=== PATIENT | male | born 1990 | race Caucasian/White ===

== ENCOUNTER 2022-03-21 17:23 | Emergency (ER) | payer OTHER | END 2022-03-21 21:34 | disposition home or self-care (01) | LOC: ER1 17:23 | DX: U07.1 COVID-19 (principal); M79.672 Pain in left foot; F15.10 Other stimulant abuse, uncomplicated; F17.200 Nicotine dependence, unspecified, uncomplicated | CPT/HCPCS: 0241U; 99283 ==

== ENCOUNTER 2022-03-31 08:41 | Emergency (ER) | payer OTHER | END 2022-03-31 12:15 | disposition home or self-care (01) | LOC: ER1 08:41 | DX: S90.851A Superficial foreign body, right foot, initial encounter (principal); M79.672 Pain in left foot; W45.8XXA Other foreign body or object entering through skin, initial encounter | CPT/HCPCS: 10120; 73620; 99283 ==

== ENCOUNTER 2022-05-04 10:40 | Observation (INO) | payer OTHER ==
[~2022-05-04] VITALS: Ht 185.4 cm; Wt 83.9 kg
[2022-05-04 11:22] LABS: HEMOGLOBIN 14.4 gm/dl (14.0-17.5); RED BLOOD COUNT 4.43 M/UL (4.20-5.50); WHITE BLOOD COUNT 6.6 K/UL (4.5-11.0)
[2022-05-04 11:46] LABS: BUN/CREATININE RATIO 12 (0-10)
--- NOTE | 2022-05-04 19:31 | NUR ---
PT IS CURRENLY IN AND OUT OF ORIENTATION SO IT WAS DIFFUCULT TO GET A DETAILED PART 1. DIRECTOR SEARCH MARKETING STRATEGIES JOSH INSTRUCTED ME TO OBTAIN WHAT INFORMATION I COULD.
[2022-05-05 03:30] LABS: HEMOGLOBIN 13.9 gm/dl (14.0-17.5); RED BLOOD COUNT 4.35 M/UL (4.20-5.50); WHITE BLOOD COUNT 6.9 K/UL (4.5-11.0)
[2022-05-05 03:53] LABS: BUN/CREATININE RATIO 18 (0-10)
[2022-05-05] MEDS ORDERED: CHLORASEPTIC20 ML MM (13:57)
== END 2022-05-05 16:17 | disposition home or self-care (01) ==
LOC: ER1 10:40 → CDU 15:05 → M/S 17:27
PROVIDERS: Physician Assistant Medical; Student in an Organized Health Care Education/Training Program; ADMIT Internal Medicine
DX: F15.10 Other stimulant abuse, uncomplicated (principal)
CPT/HCPCS: 36415; 70360; 71045; 71250; 74018; 80048; 80053; 80307; 81001; 82550; 82553; 83605; 83735; 84484; 85025; 85027; 85610; 85730; 99285; G0378

== ENCOUNTER 2022-05-16 08:05 | Emergency (ER) | payer OTHER ==
[~2022-05-16 08:05] MED LIST: CHLORASEPTIC20 ML MM
[2022-05-16 11:37] LABS: HEMOGLOBIN 13.3 gm/dl (14.0-17.5); RED BLOOD COUNT 4.05 M/UL (4.20-5.50); WHITE BLOOD COUNT 9.7 K/UL (4.5-11.0)
[2022-05-16 11:59] LABS: BUN/CREATININE RATIO 27 (0-10)
[2022-05-16] MEDS ORDERED: PROTONIX40 MG PO (13:03)
[2022-05-16] MEDS ORDERED: ONDANSETRON ODT4 MG SL (13:03)
== END 2022-05-16 12:09 | disposition home or self-care (01) ==
LOC: ER1 08:05
PROVIDERS: Physician Assistant
DX: R07.89 Other chest pain (principal); R11.2 Nausea with vomiting, unspecified; K21.9 Gastro-esophageal reflux disease without esophagitis; F17.290 Nicotine dependence, other tobacco product, uncomplicated
CPT/HCPCS: 71045; 80053; 81001; 82550; 82553; 83690; 84484; 85025; 93005; 96374; 96375; 99285; C9113; J2405; Q0177

== ENCOUNTER 2022-05-18 11:35 | Emergency (ER) | payer OTHER ==
[~2022-05-18] VITALS: Ht 185.4 cm; Wt 77.1 kg
[~2022-05-18 11:35] MED LIST changes: +ONDANSETRON ODT4 MG SL; +PROTONIX40 MG PO
[2022-05-18 13:44] LABS: HEMOGLOBIN 12.3 gm/dl (14.0-17.5); RED BLOOD COUNT 3.9 M/UL (4.20-5.50); WHITE BLOOD COUNT 10.1 K/UL (4.5-11.0)
[2022-05-18 14:09] LABS: BUN/CREATININE RATIO 25 (0-10)
[2022-05-18] MEDS ORDERED: PEPCID40 MG PO (18:58)
[2022-05-18] MEDS ORDERED: PROTONIX40 MG PO (18:58)
== END 2022-05-18 19:19 | disposition home or self-care (01) ==
LOC: ER1 11:35
PROVIDERS: Physician Assistant
DX: K92.0 Hematemesis (principal); F17.290 Nicotine dependence, other tobacco product, uncomplicated
CPT/HCPCS: 71045; 71260; 80053; 82272; 82550; 82553; 84484; 85025; 86850; 86900; 86901; 93005; 96372; 96374; 96375; 99284; C9113; J1630; Q9967

== ENCOUNTER 2022-05-20 08:37 | Emergency (ER) | payer OTHER ==
[~2022-05-20 08:37] MED LIST changes: +PEPCID40 MG PO
[2022-05-20 10:10] LABS: HEMOGLOBIN 11.1 gm/dl (14.0-17.5); WHITE BLOOD COUNT 7.6 K/UL (4.5-11.0)
[2022-05-20 10:11] LABS: RED BLOOD COUNT 3.47 M/UL (4.20-5.50)
[2022-05-20 10:35] LABS: BUN/CREATININE RATIO 16 (0-10)
== END 2022-05-20 19:00 | disposition short-term general hospital (02) ==
LOC: ER1 08:37
PROVIDERS: Nurse Practitioner
DX: K22.3 Perforation of esophagus (principal); Z20.822 Contact with and (suspected) exposure to COVID-19
CPT/HCPCS: 71045; 71260; 80053; 82550; 82553; 84484; 85025; 93005; 96365; 96367; 96375; 99285; J0696; J2405; J2543; J2550; J7030; Q9967; U0002